=== PATIENT | male | born 1945 | race Caucasian/White ===

== ENCOUNTER → 2017-11-12 | Day surgery (SDC) | payer MEDICARE, OTHER ==
[~2017-11-12] MED LIST: LIDOCAINE 2% PF Vial for OR 5 ML VIAL.; PROPOFOL 40 ML IV
== END | disposition home or self-care (01) ==
LOC: SURG 12:33
DX: T18.128A Food in esophagus causing other injury, initial encounter (principal); K62.9 Disease of anus and rectum, unspecified; E78.00 Pure hypercholesterolemia, unspecified; M19.91 Primary osteoarthritis, unspecified site; Z87.39 Personal history of other diseases of the musculoskeletal system and connective tissue
CPT/HCPCS: 43247; 93005; J2704

== ENCOUNTER → 2017-12-04 | Outpatient (CLI) | payer MEDICARE | END | disposition home or self-care (01) | LOC: ECHO 13:47 | DX: I48.92 Unspecified atrial flutter (principal); R06.00 Dyspnea, unspecified; I07.1 Rheumatic tricuspid insufficiency | CPT/HCPCS: 93306 ==

== ENCOUNTER → 2019-10-01 | Outpatient (CLI) | payer MEDICARE ==
[2017-11-12 13:57] VITALS: BP 149/80
[~2019-10-01] MED LIST changes: +ATOR10TA60 PO; -LIDOCAINE 2% PF Vial for OR 5 ML VIAL.; -PROPOFOL 40 ML IV
--- NOTE | 2019-10-01 10:30 | CARD ---
MR#: [id number] Date of Study: 10/01/2019 Ordering Physician: ANGELIC DC, Referring Physician: Kayy ROMANO: Britany Michel APPROVED REPORT EXAM: Two-dimensional and M-mode echocardiogram with Doppler and color Doppler. Other Information Quality : AverageHR: 73bpm INDICATION Atrial Fibrillation 2D DIMENSIONS RVDd3.9 (2.9-3.5cm)Left Atrium(2D)4.8 (1.6-4.0cm) IVSd1.4 (0.7-1.1cm)Aortic Root(2D)2.5 (2.0-3.7cm) LVDd5.9 (3.9-5.9cm)LVOT Diameter2.4 (1.8-2.4cm) PWd1.0 (0.7-1.1cm)LVDs4.2 (2.5-4.0cm) FS (%) 28.3 %SV93.2 ml LVEF(%)53.9 (>50%) Aortic Valve AoV Peak Rojas.104.8cm/sAoV VTI18.6cm AO Peak GR.4.4mmHgLVOT Peak Rojas.111.3cm/s AO Mean GR.2mmHgAVA (VMAX)4.73cm2 Mitral Valve MV E Peak Gr.2mmHgMV E Mean Gr.1mmHg Pulmonary Valve PV Peak Akflguoi95.3cm/s LEFT VENTRICLE The left ventricle is normal size. There is borderline to mild concentric left ventricular hypertroph y. The left ventricular systolic function is normal. The Ejection Fraction is 55-60%. There is normal LV segmental wall motion. Unable to assess diastolic function due to the presence of atrial fibrilla tion. RIGHT VENTRICLE The right ventricle is normal size. There is normal right ventricular wall thickness. The right ventr icular systolic function is normal. ATRIA The left atrium is mildly dilated. The right atrium is mildly dilated. The interatrial septum is inta ct with no evidence for an atrial septal defect or patent foramen ovale as noted on 2-D or Doppler im aging. AORTIC VALVE The aortic valve is not well visualized. Doppler and Color Flow revealed trace aortic regurgitation. There is no significant aortic valvular stenosis. MITRAL VALVE The mitral valve is thickened but opens well. There is no evidence of mitral valve prolapse. There is no mitral valve stenosis. Doppler and Color-flow revealed trace mitral regurgitation. TRICUSPID VALVE The tricuspid valve is normal in structure and function. Doppler and Color Flow revealed trace tricus pid regurgitation. There is no tricuspid valve stenosis. PULMONIC VALVE The pulmonic valve is not well visualized. Doppler and Color Flow revealed no pulmonic valvular regur gitation. GREAT VESSELS The aortic root is border line enlarged. The ascending aorta is borderline dilated. The IVC is normal in size and collapses >50% with inspiration. PERICARDIAL EFFUSION There is no pleural effusion. There is no evidence of significant pericardial effusion. Critical Notification Critical Value: No <Conclusion> The left ventricular systolic function is normal. The Ejection Fraction is 55-60%. There is normal LV segmental wall motion. Trace mitral regurgitation. Trace tricuspid regurgitation. There is no evidence of significant pericardial effusion. Signed by : Osorio Brumfield, Electronically Approved : 10/01/2019 10:30:28
== END | disposition home or self-care (01) ==
LOC: ECHO 09:14
PROVIDERS: ATTEND Family Medicine
DX: I51.7 Cardiomegaly (principal); I48.91 Unspecified atrial fibrillation
CPT/HCPCS: 93306